=== PATIENT | male | born 1970 | race Caucasian/White ===

== ENCOUNTER 2016-11-20 18:11 | Inpatient (IN) | payer MEDICARE, MEDICAID ==
[2016-11-20 18:45] VITALS: BP 142/77
[2016-11-20] MEDS: Hydrocodone/APAP 5mg/325mg Tab PO PRN (21:56)
[2016-11-21 08:54] LABS: % BASOPHILS 0.7 % (0.0-2.0); % EOSINOPHILS 0.2 % (0.0-5.0); % LYMPHOCYTES 11.7 % (20.0-50.0); % MONOCYTES 5.3 % (2.0-10.0); % NEUTROPHILS 82.1 % (40.0-80.0); HEMATOCRIT 33.8 % (39.0-49.0); HEMOGLOBIN 11.6 gm/dL (13.2-17.3); MEAN CELL VOLUME 86.9 fl (80-99); MEAN CORPUSCULAR HEMOGLOBIN 29.8 pg (26.0-30.0); MEAN CORPUSCULAR HGB CONC 34.3 pg (28.0-36.0); MEAN PLATELET VOLUME 8.2 fl; NEUTROPHILE ABSOLUTE 10.9 Th/cmm (1.8-8.0); PLATELET COUNT 188 Th/cmm (150-400); RED BLOOD COUNT 3.89 Mil/cmm (4.30-5.70); RED CELL DISTRIBUTION WIDTH 12.5 % (11.5-20.0)
[2016-11-21 09:14] LABS: INR 1.04 (0.5-1.4); PROTHROMBIN TIME (TEST) 10.8 SECONDS (9.5-11.5)
[2016-11-21 09:16] LABS: ALB/GLOB RATIO 1.4 (1.0-1.8); ALKALINE PHOSPHATASE 61 U/L (34-104); ANION GAP 9.4 (7.0-16.0); BILIRUBIN,TOTAL 1.2 mg/dL (0.3-1.0); BUN - UREA NITROGEN 7 mg/dL (7-25); BUN/CREATININE RATIO 7.8; CALCIUM SERUM 9.1 mg/dL (8.6-10.3); CHLORIDE 98 mEq/L (98-107); CREATININE - SERUM 0.9 mg/dL (0.7-1.3); GLUCOSE 258 mg/dL (70-105); POTASSIUM SERUM 3.4 mEq/L (3.5-5.1); SGOT 17 U/L (13-39); SGPT/ALT 19 U/L (7-52); SODIUM SERUM 130 mEq/L (136-145)
[2016-11-21 09:53] LABS: WHITE BLOOD COUNT 13.3 Th/cmm (4.8-10.8)
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
--- NOTE | 2016-11-21 10:16 | Diagnostic Imaging Report ---
CHEST X-RAY: AP view INDICATION: Cough, preop COMPARISON: None FINDINGS: There is no focal consolidation or pleural effusions The heart borderline cardiomegaly is noted.. The osseous structures demonstrate no acute abnormalities. IMPRESSION: No focal consolidation identified. Borderline cardiomegaly.
[2016-11-21] MEDS ORDERED: VTE Chemical Prophylaxis Screen/Admission MC PRN (11:00)
[2016-11-21] MEDS: Hydrocodone/APAP 5mg/325mg Tab PO PRN ×2 (12:36→20:10)
[2016-11-21] MEDS: HYDROmorphone 1 mg/mL 1mL Syr IVP PRN (17:02)
[2016-11-21] MEDS: Benztropine 1 MG TAB PO SCH (20:10)
[2016-11-22] MEDS: HYDROmorphone 1 mg/mL 1mL Syr IVP PRN ×2 (02:43→21:30)
[2016-11-22 07:12] LABS: % BASOPHILS 0.2 % (0.0-2.0); % EOSINOPHILS 0.3 % (0.0-5.0); % LYMPHOCYTES 18.3 % (20.0-50.0); % MONOCYTES 10.3 % (2.0-10.0); % NEUTROPHILS 70.9 % (40.0-80.0); HEMOGLOBIN 11.7 gm/dL (13.2-17.3); MEAN CELL VOLUME 87.6 fl (80-99); MEAN CORPUSCULAR HEMOGLOBIN 30.2 pg (26.0-30.0); MEAN CORPUSCULAR HGB CONC 34.4 pg (28.0-36.0); MEAN PLATELET VOLUME 8.3 fl; NEUTROPHILE ABSOLUTE 9.4 Th/cmm (1.8-8.0); PLATELET COUNT 174 Th/cmm (150-400); RED BLOOD COUNT 3.89 Mil/cmm (4.30-5.70); RED CELL DISTRIBUTION WIDTH 12.7 % (11.5-20.0); WHITE BLOOD COUNT 13.2 Th/cmm (4.8-10.8)
[2016-11-22 07:47] LABS: ALB/GLOB RATIO 1.2 (1.0-1.8); ALKALINE PHOSPHATASE 61 U/L (34-104); BILIRUBIN,TOTAL 1.2 mg/dL (0.3-1.0); BUN - UREA NITROGEN 10 mg/dL (7-25); BUN/CREATININE RATIO 12.5; CALCIUM SERUM 9.2 mg/dL (8.6-10.3); CARBON DIOXIDE 29.4 mEq/L (21.0-31.0); CHLORIDE 99 mEq/L (98-107); CREATININE - SERUM 0.8 mg/dL (0.7-1.3); GLUCOSE 142 mg/dL (70-105); POTASSIUM SERUM 3.4 mEq/L (3.5-5.1); SGOT 18 U/L (13-39); SGPT/ALT 18 U/L (7-52); SODIUM SERUM 132 mEq/L (136-145)
--- NOTE | 2016-11-22 08:26 | General Progress Note ---
Subjective - Review of Systems Service Date: 11/22/16 Subjective: I am fine Objective - Results Result Diagrams: 11/22/16 06:37 11/22/16 06:37 Recent Labs: Laboratory Last Values WBC 13.2 Th/cmm (4.8-10.8) H 11/22/16 06:37 RBC 3.89 Mil/cmm (4.30-5.70) L 11/22/16 06:37 Hgb 11.7 gm/dL (13.2-17.3) L 11/22/16 06:37 Hct 34.0 % (39.0-49.0) L 11/22/16 06:37 MCV 87.6 fl (80-99) 11/22/16 06:37 MCH 30.2 pg (26.0-30.0) H 11/22/16 06:37 MCHC Differential 34.4 pg (28.0-36.0) 11/22/16 06:37 RDW 12.7 % (11.5-20.0) 11/22/16 06:37 Plt Count 174 Th/cmm (150-400) 11/22/16 06:37 MPV 8.3 fl 11/22/16 06:37 Neutrophils % 70.9 % (40.0-80.0) 11/22/16 06:37 Lymphocytes % 18.3 % (20.0-50.0) L 11/22/16 06:37 Monocytes % 10.3 % (2.0-10.0) H 11/22/16 06:37 Eosinophils % 0.3 % (0.0-5.0) 11/22/16 06:37 Basophils % 0.2 % (0.0-2.0) 11/22/16 06:37 PT 10.8 SECONDS (9.5-11.5) 11/21/16 08:44 INR 1.04 (0.5-1.4) 11/21/16 08:44 PTT (Actin FS) 26.7 SECONDS (26.0-38.0) 11/21/16 08:44 Sodium 132 mEq/L (136-145) L 11/22/16 06:37 Potassium 3.4 mEq/L (3.5-5.1) L 11/22/16 06:37 Chloride 99 mEq/L (98-107) 11/22/16 06:37 Carbon Dioxide 29.4 mEq/L (21.0-31.0) 11/22/16 06:37 Anion Gap 7.0 (7.0-16.0) 11/22/16 06:37 BUN 10 mg/dL (7-25) 11/22/16 06:37 Creatinine 0.8 mg/dL (0.7-1.3) 11/22/16 06:37 Est GFR ( Amer) > 60.0 ml/min (>90) 11/22/16 06:37 Est GFR (Non-Af Amer) > 60.0 ml/min 11/22/16 06:37 BUN/Creatinine Ratio 12.5 11/22/16 06:37 Glucose 142 mg/dL (70-105) H 11/22/16 06:37 Hemoglobin A1c % 5.9 % (4.0-6.0) 11/21/16 08:44 Calcium 9.2 mg/dL (8.6-10.3) 11/22/16 06:37 Total Bilirubin 1.2 mg/dL (0.3-1.0) H 11/22/16 06:37 AST 18 U/L (13-39) 11/22/16 06:37 ALT 18 U/L (7-52) 11/22/16 06:37 Alkaline Phosphatase 61 U/L (34-104) 11/22/16 06:37 Total Protein 6.7 gm/dL (6.0-8.3) 11/22/16 06:37 Albumin 3.7 gm/dL (4.2-5.5) L 11/22/16 06:37 Globulin 3.0 gm/dL 11/22/16 06:37 Albumin/Globulin Ratio 1.2 (1.0-1.8) 11/22/16 06:37 - Physical Exam Vitals and I&O: Vital Signs Temp 99.0 F 11/22/16 04:00 Pulse 94 11/22/16 04:00 Resp 18 11/22/16 04:00 BP 128/78 11/22/16 04:00 Pulse Ox 97 11/22/16 04:00 Intake & Output 11/21/16 11/22/16 11/22/16 18:59 06:59 18:59 Intake Total 720 Output Total 425 Balance 295 Weight (lbs) 152.407 kg 152.407 kg Intake: Oral 720 Output: Urine 425 Other: # Voids 4 # Bowel Movements 0 Active Medications: Current Medications Acetaminophen/Hydrocodone Bitart ([place] 5mg/325mg) 1 tab PO Q6H PRN PRN Reason: Pain (Moderate) Stop: 01/19/17 18:48 Last Admin: 11/21/16 20:10 Dose: 1 tab Atenolol (Tenormin) 25 mg PO DAILY [facility] Stop: 01/20/17 08:59 Last Admin: 11/21/16 08:24 Dose: 25 mg Benztropine Mesylate (Cogentin) 1 mg PO HS [facility] Stop: 01/20/17 20:59 Last Admin: 11/21/16 20:10 Dose: 1 mg Fluoxetine HCl (Prozac) 40 mg PO QAM [facility] Stop: 01/20/17 08:59 Last Admin: 11/21/16 08:25 Dose: 40 mg Heparin Sodium (Porcine) (Heparin) 5,000 units SUBQ Q12HR [facility] Stop: 01/20/17 20:59 Last Admin: 11/21/16 20:10 Dose: 5,000 units Hydrochlorothiazide (Hctz) 25 mg PO DAILY [facility] Stop: 01/20/17 08:59 Last Admin: 11/21/16 08:25 Dose: 25 mg Hydromorphone HCl (Dilaudid) 1 mg IVP Q6HR PRN PRN Reason: Pain (Severe) Stop: 01/19/17 18:47 Last Admin: 11/22/16 02:43 Dose: 1 mg Miscellaneous ([employer] Prophylaxis Screen/ Admission) 1 ea [facility] PRN PRN PRN Reason: PROTOCOL Stop: 01/20/17 10:59 Risperidone (Risperdal) 2 mg PO HS [facility] Stop: 01/20/17 20:59 Last Admin: 11/21/16 20:10 Dose: 2 mg General: Alert, Oriented x3, Cooperative, No acute distress HEENT: Atraumatic, PERRLA Neck: Supple Cardiovascular: Regular rate Abdomen: Bowel sounds, Soft Extremities: Other (Edema of right leg and patient has traction ) Neurological: Other (Non ambulatory at this moment) Skin: Other (Warm and dry) Psych/Mental Status: Mental status NL Assessment/Plan - Assessment Assessment: Patient is awake, calm, in no acute distress. Dx: fracture of right leg, HTN Depression, Schizophrenia. - Plan Plan: Patient in pain control, continue with home meds. Traction on place. Already seen by Ortho. Will continue to monitor.
[2016-11-22] MEDS: Hydrocodone/APAP 5mg/325mg Tab PO PRN (10:29)
[2016-11-22] MEDS: Benztropine 1 MG TAB PO SCH (21:03)
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
== END 2016-11-23 00:45 | disposition short-term general hospital (02) | DRG 563 ==
LOC: MSI 18:11
PROVIDERS: ADMIT General Practice; ATTEND General Practice
DX: S82.141A Displaced bicondylar fracture of right tibia, initial encounter for closed fracture (principal); F20.9 Schizophrenia, unspecified; I10 Essential (primary) hypertension; S82.251A Displaced comminuted fracture of shaft of right tibia, initial encounter for closed fracture; F32.9 Major depressive disorder, single episode, unspecified; M25.461 Effusion, right knee; E66.3 Overweight; V87.8XXA Person injured in other specified noncollision transport accidents involving motor vehicle (traffic), initial encounter; Y93.89 Activity, other specified; Y92.89 Other specified places as the place of occurrence of the external cause; Y99.8 Other external cause status; Z68.36 Body mass index [BMI] 36.0-36.9, adult; Z87.891 Personal history of nicotine dependence; Z79.899 Other long term (current) drug therapy
CPT/HCPCS: 36415-UA; 71010-TC; 80053-TC; 83036-90; 85025-TC; 85610-TC; 93005; J1170; J1644; Z7610